=== PATIENT | male | born 1995 | race Caucasian/White ===

== ENCOUNTER 2020-10-23 10:42 | Outpatient (REF) | payer BC, SELFPAY | END 2020-10-23 10:43 | disposition home or self-care (01) | LOC: HO.LNP 10:42 | PROVIDERS: Visit Provider Family Medicine | DX: J02.9 Acute pharyngitis, unspecified (principal); Z20.822 Contact with and (suspected) exposure to COVID-19 | CPT/HCPCS: 87071; U0003; U0005 ==